=== PATIENT | male | born 1970 ===

== ENCOUNTER 2018-01-10 13:16 | Inpatient (IN) | payer OTHER ==
[~2018-01-10] VITALS: Ht 180.3 cm; Wt 122.5 kg
[~2018-01-10 13:16] MED LIST: ASPIR 8181 MG; CIPRO500 MG PO; COZAAR100 MG; FLAGYL500MG PO; GLUCOPHAGE XR500 MG; INTESTINEX680 M1 PO; ULTRACET PO; ZOCOR20 MG
[2018-02-16] MEDS ORDERED: PERCOCET 5-3251 EACH PO (08:59)
[2018-02-16] MEDS ORDERED: VITAMIN B-121000 MC2 SL (08:59)
[2018-02-16] MEDS ORDERED: INTESTINEX680 M1 PO (08:59)
== END 2018-02-16 10:05 | disposition home or self-care (01) | DRG 331 ==
LOC: SURG 02-06 10:30 → O/R 02-13 06:00 → SURH 02-13 13:22
PROVIDERS: Surgery
PROC: 0DJD8ZZ Inspection of Lower Intestinal Tract, Via Natural or Artificial Opening Endoscopic (ICD-10-PCS; 2018-02-13)
PROC: 4A033R1 Measurement of Arterial Saturation, Peripheral, Percutaneous Approach (ICD-10-PCS; 2018-02-13)
PROC: 4A12X4Z Monitoring of Cardiac Electrical Activity, External Approach (ICD-10-PCS; 2018-02-13)
PROC: 0DTN4ZZ Resection of Sigmoid Colon, Percutaneous Endoscopic Approach (ICD-10-PCS; principal; 2018-02-13 19:15)
DX: K57.32 Diverticulitis of large intestine without perforation or abscess without bleeding (principal); E11.9 Type 2 diabetes mellitus without complications; I11.9 Hypertensive heart disease without heart failure; E66.01 Morbid (severe) obesity due to excess calories; G47.33 Obstructive sleep apnea (adult) (pediatric); D64.89 Other specified anemias; G58.8 Other specified mononeuropathies

== ENCOUNTER 2018-05-03 19:40 | Emergency (ER) | payer OTHER ==
[~2018-05-03] VITALS: Ht 180.3 cm; Wt 120.2 kg
[~2018-05-03 19:40] MED LIST changes: +PERCOCET 5-3251 EACH PO; +VITAMIN B-121000 MC2 SL
== END 2018-05-03 22:26 | disposition home or self-care (01) ==
LOC: ER 19:40
DX: J03.80 Acute tonsillitis due to other specified organisms (principal)

== ENCOUNTER 2018-06-07 03:08 | Emergency (ER) | payer OTHER ==
[~2018-06-07] VITALS: Ht 180.3 cm; Wt 117.9 kg
== END 2018-06-07 09:11 | disposition home or self-care (01) ==
LOC: ER 03:08 → CPU-OBS 03:09 → ER 09:11
DX: R07.89 Other chest pain (principal)
CPT/HCPCS: G0378; G0379; 93005

== ENCOUNTER 2021-04-27 05:08 | Emergency (ER) | payer OTHER ==
[~2021-04-27] VITALS: Ht 180.3 cm; Wt 127.0 kg
== END 2021-04-27 10:43 | disposition home or self-care (01) ==
LOC: ER 05:08
DX: M79.662 Pain in left lower leg (principal); R10.9 Unspecified abdominal pain; I10 Essential (primary) hypertension; E11.9 Type 2 diabetes mellitus without complications